=== PATIENT | female | born 1965 | race African-American/Black ===

== ENCOUNTER 2020-06-03 20:13 | Emergency (ER) | payer OTHER ==
[2020-06-03] MEDS ORDERED: SODIUM CHLORIDE 0.9% (FLUSH) 10 ML SYG IV PRN (20:38)
[2020-06-03] MEDS ORDERED: METOPROLOL TARTRATE INJ 5 MG/5 ML VIAL IV ONE ×3 (20:39→23:09)
--- NOTE | 2020-06-03 20:53 | RAD ---
EXAM: Chest,1 View CLINICAL INDICATION: Shortness of breath COMPARISON: There is no previous study for comparison. FINDINGS: A single view of the chest was obtained. The heart size is normal. A tracheostomy is noted. The pulmonary vascularity is unremarkable. The lungs are clear. There is no consolidation, infiltrate, pleural effusion, or pneumothorax. IMPRESSION: No evidence of active pulmonary disease. Electronically signed by: Edgar Reynolds MD 06/03/2020 8:51 PM [facility]
[2020-06-03] MEDS ORDERED: SODIUM CHLORIDE 0.9% 1000ML 1,000 ML IVS ONE (21:36)
[2020-06-04] MEDS ORDERED: SODIUM CHLORIDE 0.9% 1000ML 1,000 ML IVS ONE (00:19)
[2020-06-04] MEDS ORDERED: METOPROLOL TARTRATE INJ 5 MG/5 ML VIAL IV ONE (00:20)
[2020-06-04] MEDS ORDERED: PIPERACILLIN/TAZOBACTAM 4.5 GM in SODIUM CHLORIDE 0.9% 100ML 100 ML IVPB ONE (00:37)
--- NOTE | 2020-06-04 00:44 | ED.PDOC ---
History of Present Illness - General Chief Complaint: Blood Pressure Problem Stated Complaint: high B/P, high HR Time Seen by Provider: 06/03/20 20:38 Source: RN notes reviewed, Vital Signs reviewed, EMS notes reviewed, residential records Exam Limitations: clinical condition - Pt with a trach tube in place. - History of Present Illness Initial Comments: History of present illness and review of systems are limited secondary to patient having a trach tube and unable to effectively communicate with the staff and myself. Patient sent from the residential secondary to elevated blood pressure and heart rate. On arrival here patient's heart rate was in the 160s with a blood pressure of systolic 220 and diastolic 110. Edition patient was diaphoretic and tachypneic. Patient denied any pain. Timing/Duration: unsure Severity: severe Improving Factors: nothing Worsening Factors: nothing Associated Symptoms: diaphoresis Allergies/Adverse Reactions: Allergies NO KNOWN ALLERGY Allergy (Verified 06/03/20 20:54) Home Medications: Ambulatory Orders Acetaminophen [Tylenol] 325 mg PO 06/03/20 Arformoterol Tartrate Nebs [Brovana Nebs] 06/03/20 Aspirin [Aspirin 81 Low Dose] 81 mg PO 06/03/20 Bisacodyl Suppository 10Mg [Dulcolax Suppository 10mg] 06/03/20 Budesonide (Inhalation) [Budesonide] 06/03/20 Chlorhexidine Gluconate (Mouth [Chlorhexidine Gluconate] 0.12 % MT 06/03/20 Docusate Sodium [Pedia-Lax] 50 mg PO 06/03/20 Enoxaparin Sodium [Lovenox] 40 mg SC 06/03/20 Famotidine 10 mg PO 06/03/20 Gabapentin (Bulk) 100 mg Q8HR 06/03/20 Guaifenesin 400 mg PO 06/03/20 Insulin Detemir [Levemir Pen] 06/03/20 Insulin Lispro 06/03/20 Levetiracetam in Sodium Chlori [Levetiracetam/Sodium Chlo 500 mg/100Ml] 1 karey IV 06/03/20 Promethazine HCl 12.5 mg TX 06/03/20 Thiamine HCl [Thiamine Hydrochloride] 100 mg PO 06/03/20 hydrALAZINE HCl [(None)] 10 mg PO 06/03/20 levoFLOXacin [Levaquin] 500 mg PO DAILY 06/03/20 Review of Systems - Review of Systems Unable to Obtain Due To: clinical condition Past Medical History (General) - Patient Medical History Hx Seizures: No Hx Stroke: Yes - TIA Hx Dementia: No Hx Asthma: No Hx of COPD: No Hx Cardiac Disorders: Yes Hx Congestive Heart Failure: No Hx Pacemaker: No Hx Hypertension: Yes Hx Thyroid Disease: No Hx Diabetes: Yes Hx Gastroesophageal Reflux: No Hx Renal Disease: Yes Hx Cancer: No Hx of HIV: No Hx Hepatitis C: No Hx MRSA: No - Vaccination History Hx Tetanus, Diphtheria Vaccination: No Hx Influenza Vaccination: Yes Hx Pneumococcal Vaccination: No - Social History Hx Tobacco Use: No Hx Chewing Tobacco Use: No Hx Alcohol Use: No Hx Substance Use: No Hx Substance Use Treatment: No Hx Depression: No Feels Threatened In Home Enviroment: No Feels Threatened In a Relationship: No Hx Physical Abuse: No Hx Emotional Abuse: No Hx Suspected Abuse: No - Activities of Daily Living Prison/Assisted Living (if applicable):: Yaron Adri[facility] - Female History Patient is a Female of Child Bearing Age (10 -59 yrs old): Yes Patient : No - Triage Comment ED Triage Comment: The patient was moved from EMS cot onto ER Trauma room bed and left with rails up. She was would follow come commands but was not very alert. She was sweating to and warm to the touch on the right side and cool on the left. She was normally on the vent and was moved from the BVM EMS was using onto the vent and settings set by RT. She could not speak so information was obtained from EMS and the paperwork sent from the residential. She was tachacardic at 176. Family Medical History - Family History Mother Family History: Unknown Physical Exam - Physical Exam General Appearance: Anxious, Obvious distress, Ill Appearing, Unkempt, Well Developed, Well Nourished Eye Exam: bilateral normal Ears, Nose, Throat: hearing grossly normal, other - Patient with dry mucous membranes. Neck: non-tender, full range of motion, supple, other - Trach in place Respiratory: chest non-tender, respiratory distress, accessory muscle use, rhonchi Cardiovascular/Chest: normal peripheral pulses, no murmur, tachycardia Peripheral Pulses: radial,right: 2+, radial,left: 2+ Gastrointestinal/Abdominal: normal bowel sounds, non tender, soft Back Exam: no CVA tenderness, no vertebral tenderness Extremity: no pedal edema, no calf tenderness, normal capillary refill Neurologic: alert Skin Exam: normal color, diaphoresis Lymphatic: no adenopathy Progress - Progress Progress: Differential diagnosis: Sepsis, pneumonia, Covid, influenza among others. 06/04/20 02:45 Patient on arrival was significantly tachycardic, diaphoretic and significantly elevated blood pressure. There was some improvement in the heart rate and blood pressure with Lopressor. Overall patient received 4 doses of 5 mg of Lopressor IV. It only helped the heart rate and blood pressure transiently. Patient was noted to be very dehydrated and was given 2 L of IV fluids. Laboratory work shows a significant UTI for which she was treated with Zosyn. Patient was given clonidine which improved the blood pressure and heart rate also. Patient is going to require inpatient admission and care. Patient has been accepted at [facility]. Fransisco Mayes M.D. #[id number] - Results/Orders Results/Orders: EKG performed 03 June 2020 at 2011 hrs.: Sinus tachycardia to 163 bpm, nonspecific ST changes, normal axis deviation, abnormal EKG. No comparison EKG available at this time. EXAM: Chest,1 View CLINICAL INDICATION: Shortness of breath COMPARISON: There is no previous study for comparison. FINDINGS: A single view of the chest was obtained. The heart size is normal. A tracheostomy is noted. The pulmonary vascularity is unremarkable. The lungs are clear. There is no consolidation, infiltrate, pleural effusion, or pneumothorax. IMPRESSION: No evidence of active pulmonary disease. Electronically signed by: Edgar Reynolds MD 06/03/2020 8:51 PM [employer] 06/03/20 20:38 IV Care:Saline Lock per Protoc QSHIFT Telemetry ONCE Sodium Chloride 0.9% (Flush) [Saline Flush Syringe] 3 ml IV PRN PRN 06/03/20 20:39 Pulse Oximetry Assessment DAILY 06/03/20 20:45 EKG STAT 06/03/20 20:50 BLOOD CULTURE Stat 06/03/20 21:22 URINE CULTURE W/COLONY COUNT Stat 06/03/20 22:15 Catheter:[place] QSHIFT 06/04/20 00:19 Sodium Chloride 0.9% 1000ML [Ns 1000 ml] 1,000 ml IVS ONCE RAPID SARS-CoV-2 RNA Stat 06/04/20 00:37 Piperacillin/Tazobactam [Zosyn] 4.5 gm Sodium Chloride 0.9% 100Ml [NS (NACL 0.9%) 100ml] 100 ml IVPB ONCE 06/04/20 09:00 Pulse Ox Daily Laboratory Results - last 24 hr 06/03/20 06/03/20 06/03/20 20:35 21:22 23:30 WBC 19.5 H RBC 4.04 L Hgb 12.1 Hct 37.4 MCV 92.7 MCH 30.0 MCHC 32.3 L RDW 17.3 H Plt Count 489 H MPV 8.7 Absolute Neuts (auto) 11.90 H Absolute Lymphs (auto) 4.30 H Absolute Monos (auto) 2.30 H Absolute Eos (auto) 0.80 H Absolute Basos (auto) 0.30 H Neutrophils % 60.8 Lymphocytes % 21.8 Monocytes % 11.9 H Eosinophils % 4.0 Basophils % 1.5 PT 10.3 INR 1.04 PTT (SP) 24.5 Sodium 140 Potassium 5.5 H Chloride 103 Carbon Dioxide 22 Anion Gap 20.5 H BUN 17 Creatinine 0.69 BUN/Creatinine Ratio 24.6 H Random Glucose 157 H Serum Osmolality 284.2 Lactic Acid 1.8 Calcium 10.2 Magnesium 1.8 Total Bilirubin 1.0 Direct Bilirubin 0.2 Indirect Bilirubin 0.8 AST 40 ALT 33 Alkaline Phosphatase 86 Creatine Kinase 32 CK-MB (CK-2) 1.2 CK-MB (CK-2) % Not Reportable Troponin I < 0.02 B-Natriuretic Peptide 15.9 Serum Total Protein 8.8 H Albumin 3.9 Urine Color Yellow Urine Appearance Cloudy Urine pH 7.0 Ur Specific [place] >= 1.030 Urine Protein >=300 H Urine Glucose (UA) Negative Urine Ketones Negative Urine Blood Large H Urine Nitrite Negative Urine Bilirubin Negative Urine Urobilinogen 0.2 Ur Leukocyte Esterase Moderate H Urine RBC 20-30 H Urine WBC >50 H Ur Epithelial Cells 5-10 Urine Bacteria 2+ H EXAM: CTA Chest COMPARISON: None. INDICATION: tachycardia and tachypnea TECHNIQUE: CT images through the chest with IV contrast. Multiplanar reformats. Automated exposure control was utilized on this examination as a dose lowering technique. CTA FINDINGS: No dissection or aneurysm. No occlusion or significant stenosis. Mild to moderate calcified multivessel atherosclerosis. NONVASCULAR CHEST FINDINGS: Heart and mediastinum: Heart size is enlarged. Mediastinal and hilar lymph nodes are increased in number but not in size and are likely reactive. Thyroid gland: Visualized portions are normal. Lungs: Moderate pulmonary edema and scattered atelectasis are present. Dependent groundglass opacities are noted. Airways: No filling defects. No bronchiectasis. Endotracheal tube in place. Pleura: No pneumothorax. No significant pleural effusion. Subphrenic structures: Within normal limits. Musculoskeletal and soft tissues: Within normal limits for age. IMPRESSION: 1. Dependent groundglass opacities are favored to represent a combination of pulmonary edema and atelectasis, however early infection is not excluded. 2. Cardiomegaly with mild to moderate atherosclerosis. 3. No acute vascular abnormalities. Electronically signed by: Munir Marie MD 06/04/2020 2:19 AM PER[employer] DEVELOPER Vital Signs 06/03/20 06/03/20 06/03/20 20:13 20:35 20:40 Temperature 99.3 F Pulse Rate [ 178 H Pulse OX] Respiratory 32 H Rate Respiratory 51 H 48 H Rate [Volume Control Data] Blood Pressure 206/109 [Right Arm] O2 Sat by Pulse 97 Oximetry 06/03/20 06/03/20 06/03/20 21:28 21:30 22:00 Temperature Pulse Rate [ 127 H 129 H Pulse OX] Respiratory 32 H 32 H Rate Respiratory 37 H Rate [Volume Control Data] Blood Pressure 186/110 222/125 [Right Arm] O2 Sat by Pulse 97 97 Oximetry 06/03/20 06/04/20 06/04/20 23:00 00:00 00:31 Temperature Pulse Rate [ 126 H 126 H 132 H Pulse OX] Respiratory 50 H 50 H 50 H Rate Respiratory Rate [Volume Control Data] Blood Pressure 187/104 189/112 234/134 [Right Arm] O2 Sat by Pulse 93 L 91 L 90 L Oximetry Departure - Departure Clinical Impression: Malignant hypertension, Tachycardia, Dehydration, Tachypnea Time of Disposition: 02:51 Disposition: Transfer to Hospital Condition: Serious Departure Forms: ED Discharge - Pt. Copy, Patient Portal Self Enrollment Instructions: DI for High Blood Pressure Referrals: SONY TEIXEIRA [Primary Care Provider] - 1-2 Weeks Home Medications: Ambulatory Orders Acetaminophen [Tylenol] 325 mg PO 06/03/20 Arformoterol Tartrate Nebs [Brovana Nebs] 06/03/20 Aspirin [Aspirin 81 Low Dose] 81 mg PO 06/03/20 Bisacodyl Suppository 10Mg [Dulcolax Suppository 10mg] 06/03/20 Budesonide (Inhalation) [Budesonide] 06/03/20 Chlorhexidine Gluconate (Mouth [Chlorhexidine Gluconate] 0.12 % MT 06/03/20 Docusate Sodium [Pedia-Lax] 50 mg PO 06/03/20 Enoxaparin Sodium [Lovenox] 40 mg SC 06/03/20 Famotidine 10 mg PO 06/03/20 Gabapentin (Bulk) 100 mg Q8HR 06/03/20 Guaifenesin 400 mg PO 06/03/20 Insulin Detemir [Levemir Pen] 06/03/20 Insulin Lispro 06/03/20 Levetiracetam in Sodium Chlori [Levetiracetam/Sodium Chlo 500 mg/100Ml] 1 karey IV 06/03/20 Promethazine HCl 12.5 mg TX 06/03/20 Thiamine HCl [Thiamine Hydrochloride] 100 mg PO 06/03/20 hydrALAZINE HCl [(None)] 10 mg PO 06/03/20 levoFLOXacin [Levaquin] 500 mg PO DAILY 06/03/20 Critical Care Note - Critical Care Note Total Time (mins): 60 Transfer to Outside Facility - Transfer Information Decision to Transfer Date: 06/04/20 Decision to Transfer Time: 01:00 Reason for Transfer: required specialist not available Accepting Facility: [facility]
[2020-06-04] MEDS ORDERED: cloNIDine HCL 0.1 MG TAB PO ONE (01:41)
--- NOTE | 2020-06-04 02:21 | CT ---
EXAM: CTA Chest COMPARISON: None. INDICATION: tachycardia and tachypnea TECHNIQUE: CT images through the chest with IV contrast. Multiplanar reformats. Automated exposure control was utilized on this examination as a dose lowering technique. CTA FINDINGS: No dissection or aneurysm. No occlusion or significant stenosis. Mild to moderate calcified multivessel atherosclerosis. NONVASCULAR CHEST FINDINGS: Heart and mediastinum: Heart size is enlarged. Mediastinal and hilar lymph nodes are increased in number but not in size and are likely reactive. Thyroid gland: Visualized portions are normal. Lungs: Moderate pulmonary edema and scattered atelectasis are present. Dependent groundglass opacities are noted. Airways: No filling defects. No bronchiectasis. Endotracheal tube in place. Pleura: No pneumothorax. No significant pleural effusion. Subphrenic structures: Within normal limits. Musculoskeletal and soft tissues: Within normal limits for age. IMPRESSION: 1. Dependent groundglass opacities are favored to represent a combination of pulmonary edema and atelectasis, however early infection is not excluded. 2. Cardiomegaly with mild to moderate atherosclerosis. 3. No acute vascular abnormalities. Electronically signed by: Munir Marie MD 06/04/2020 2:19 AM [facility]
[2020-06-04 02:59] VITALS: BP 197/103; TEMP 99.1; O2SAT 99
== END 2020-06-04 02:56 | disposition short-term general hospital (02) ==
LOC: ER 20:13
DX: I12.9 Hypertensive chronic kidney disease with stage 1 through stage 4 chronic kidney disease, or unspecified chronic kidney disease (principal); E86.0 Dehydration; R00.0 Tachycardia, unspecified; R06.82 Tachypnea, not elsewhere classified; N39.0 Urinary tract infection, site not specified; N18.9 Chronic kidney disease, unspecified; E11.22 Type 2 diabetes mellitus with diabetic chronic kidney disease; I51.9 Heart disease, unspecified; Z20.822 Contact with and (suspected) exposure to COVID-19; Z86.73 Personal history of transient ischemic attack (TIA), and cerebral infarction without residual deficits; Z99.11 Dependence on respirator [ventilator] status; Z79.899 Other long term (current) drug therapy; Z79.4 Long term (current) use of insulin; Z79.82 Long term (current) use of aspirin
CPT/HCPCS: 71045; 71275; 80048; 80076; 81001; 82550; 82553; 83605; 83880; 84484; 85025; 85610; 85730; 87040; 87086; 87635; 93005; 94002; J2543; J7030; J7050

== ENCOUNTER 2020-06-22 03:34 | Emergency (ER) | payer OTHER ==
[2020-06-22] MEDS ORDERED: LABETALOL INJ 5 MG/ML VIAL IV ONE (03:40)
--- NOTE | 2020-06-22 03:43 | ED.PDOC ---
History of Present Illness - General Time Seen by Provider: 06/22/20 03:39 Source: RN notes reviewed, Vital Signs reviewed, EMS notes reviewed, EMS, senior care records Additional Information: This is a 54-year-old female, with history of acute respiratory failure hype rtension metabolic syndrome TIA diabetes kidney failure hypokalemia patient presents to the ER because of elevated blood pressure, patient comes from [facility], she recently was discharged from [place], according to EMS patient is on her usual medical baseline, she actually looks a lot more awake than usual, and her blood pressure at that senior care was elevated with tachycardia. BP was normal with EMS, it was elevated here, but patient appears to be fighting the tracheostomy - History of Present Illness Timing/Duration: intermittent Improving Factors: nothing Worsening Factors: nothing Allergies/Adverse Reactions: Allergies NO KNOWN ALLERGY Allergy (Verified 06/03/20 20:54) Home Medications: Ambulatory Orders Acetaminophen [Tylenol] 325 mg PO 06/03/20 Arformoterol Tartrate Nebs [Brovana Nebs] 06/03/20 Aspirin [Aspirin 81 Low Dose] 81 mg PO 06/03/20 Bisacodyl Suppository 10Mg [Dulcolax Suppository 10mg] 06/03/20 Budesonide (Inhalation) [Budesonide] 06/03/20 Chlorhexidine Gluconate (Mouth [Chlorhexidine Gluconate] 0.12 % MT 06/03/20 Docusate Sodium [Pedia-Lax] 50 mg PO 06/03/20 Enoxaparin Sodium [Lovenox] 40 mg SC 06/03/20 Famotidine 10 mg PO 06/03/20 Gabapentin (Bulk) 100 mg Q8HR 06/03/20 Guaifenesin 400 mg PO 06/03/20 Insulin Detemir [Levemir Pen] 06/03/20 Insulin Lispro 06/03/20 Levetiracetam in Sodium Chlori [Levetiracetam/Sodium Chlo 500 mg/100Ml] 1 karey IV 06/03/20 Promethazine HCl 12.5 mg ME 06/03/20 Thiamine HCl [Thiamine Hydrochloride] 100 mg PO 06/03/20 hydrALAZINE HCl [(None)] 10 mg PO 06/03/20 levoFLOXacin [Levaquin] 500 mg PO DAILY 06/03/20 Amoxicillin 875 mg PO BID 5 Days #10 tab 06/22/20 Azithromycin [Zithromax] 250 mg PO DAILY 4 Days #4 tab 06/22/20 Review of Systems - Review of Systems Unable to Obtain Due To: condition, intubated Past Medical History (General) - Patient Medical History Hx Seizures: No Hx Stroke: Yes - TIA Hx Dementia: No Hx Asthma: No Hx of COPD: No Hx Cardiac Disorders: Yes Hx Congestive Heart Failure: No Hx Pacemaker: No Hx Hypertension: Yes Hx Thyroid Disease: No Hx Diabetes: Yes Hx Gastroesophageal Reflux: No Hx Renal Disease: Yes Hx Cancer: No Hx of HIV: No Hx Hepatitis C: No Hx MRSA: No - Vaccination History Hx Tetanus, Diphtheria Vaccination: No Hx Influenza Vaccination: Yes Hx Pneumococcal Vaccination: No - Social History Hx Tobacco Use: No Hx Chewing Tobacco Use: No Hx Alcohol Use: No Hx Substance Use: No Hx Substance Use Treatment: No Hx Depression: No Hx Physical Abuse: No Hx Emotional Abuse: No Hx Suspected Abuse: No - Female History Patient : No Family Medical History - Family History Mother Family History: Unknown Physical Exam - Physical Exam General Appearance: Agitated Eye Exam: bilateral normal Ears, Nose, Throat: hearing grossly normal Neck: non-tender, full range of motion, supple Respiratory: chest non-tender, lungs clear, normal breath sounds, no respiratory distress, no accessory muscle use Cardiovascular/Chest: normal peripheral pulses, regular rate, rhythm, no edema, no gallop, no JVD, no murmur Peripheral Pulses: radial,right: 2+, radial,left: 2+ Gastrointestinal/Abdominal: normal bowel sounds, non tender, soft, no organomegaly Extremity: normal range of motion, non-tender, normal inspection, no pedal edema, no calf tenderness Neurologic: other - usual neurological baseline Skin Exam: normal color Lymphatic: no adenopathy Progress - Progress Progress: 54-year-old female, with a tracheostomy with respiratory failure that presents from senior care, allegedly patient blood pressure was elevated at the senior care facility, when patient arrived in our facility, patient was tachycardic in the 120s, blood pressure was elevated I ordered labetalol in the ER to help with the tachycardia and also decrease the blood pressure or improve the blood pressure. The blood pressure normalized and heart rate started coming down, we noticed that patient appears to be uncomfortable she is nonverbal and she has tracheostomy so can be suctioned the tracheostomy removing a lot of white look like a mucous plug, and patient vital signs started to normalize, and patient appears more calm and awake and did not appear to have any respiratory distress. Patient chest x-ray did not show any evidence of pneumonia patient does not have any evidence of UTI with negative nitrates, I did order lactic acid up blood culture, lactic acid was elevated at 2.7 so we decided without any obvious source of infection we will give her fluids we will order IV Rocephin and Zithromax, will discharge patient back to senior care with p.o. Zithromax for 4 days and high-dose amoxicillin for 4 days twice a day, pending blood cultures, be less distressed, she is calm heart rate is coming down, and blood pressure is better without any medication Reason why I decided to give this patient is to antibiotics is because of obviously the concern for possible pneumonia even though the x-ray was read as atelectasis this patient had a portable x-ray and there might be a possibility for pneumonia we have not been seen on x-ray 06/22/20 04:22 Departure - Departure Clinical Impression: Mucus plugging of bronchi Hypertension Qualifiers: Hypertension type: unspecified Qualified Code(s): I10 - Essential (primary) hypertension Disposition: Discharge to SNF Condition: Fair Diet: regular diet Referrals: SONY TEIXEIRA [Primary Care Provider] - 1-2 Weeks Prescriptions: Amoxicillin 875 mg PO BID 5 Days #10 tab Azithromycin [Zithromax] 250 mg PO DAILY 4 Days #4 tab Home Medications: Ambulatory Orders Acetaminophen [Tylenol] 325 mg PO 06/03/20 Arformoterol Tartrate Nebs [Brovana Nebs] 06/03/20 Aspirin [Aspirin 81 Low Dose] 81 mg PO 06/03/20 Bisacodyl Suppository 10Mg [Dulcolax Suppository 10mg] 06/03/20 Budesonide (Inhalation) [Budesonide] 06/03/20 Chlorhexidine Gluconate (Mouth [Chlorhexidine Gluconate] 0.12 % MT 06/03/20 Docusate Sodium [Pedia-Lax] 50 mg PO 06/03/20 Enoxaparin Sodium [Lovenox] 40 mg SC 06/03/20 Famotidine 10 mg PO 06/03/20 Gabapentin (Bulk) 100 mg Q8HR 06/03/20 Guaifenesin 400 mg PO 06/03/20 Insulin Detemir [Levemir Pen] 06/03/20 Insulin Lispro 06/03/20 Levetiracetam in Sodium Chlori [Levetiracetam/Sodium Chlo 500 mg/100Ml] 1 karey IV 06/03/20 Promethazine HCl 12.5 mg ME 06/03/20 Thiamine HCl [Thiamine Hydrochloride] 100 mg PO 06/03/20 hydrALAZINE HCl [(None)] 10 mg PO 06/03/20 levoFLOXacin [Levaquin] 500 mg PO DAILY 06/03/20 Amoxicillin 875 mg PO BID 5 Days #10 tab 06/22/20 Azithromycin [Zithromax] 250 mg PO DAILY 4 Days #4 tab 06/22/20
--- NOTE | 2020-06-22 04:15 | RAD ---
EXAM: XR Chest, 1 View CLINICAL HISTORY: The patient is 54 years old and is Female; hbp TECHNIQUE: Single view of the chest. COMPARISON: June 03, 2020. FINDINGS: Lungs: Bilateral dependent atelectasis is decreased in conspicuity. Linear atelectasis in the bilateral lower lobes has developed. No pulmonary vascular congestion. Pleural space: Unremarkable. No pneumothorax. Heart: Cardiomediastinal silhouette is not significantly changed given the differences in technique. Mediastinum: See above. Bones/joints: The bones and joints are unchanged as visualized. Tubes, lines and devices: Tracheostomy tube again noted. Upper abdomen: No free air in the visualized upper abdomen. IMPRESSION: Bilateral dependent atelectasis is decreased in conspicuity. Linear atelectasis in the bilateral lower lobes has developed. Electronically signed by: Kareen Oviedo MD 06/22/2020 4:13 AM [facility]
[2020-06-22] MEDS ORDERED: SODIUM CHLORIDE 0.9% 1000ML 1,000 ML IVS ONE (04:16)
[2020-06-22] MEDS ORDERED: cefTRIAXone SODIUM 1 GM in SODIUM CHL 0.9% 50ML MIN-BAG+ 50 ML IVPB ONE (04:22)
[2020-06-22] MEDS ORDERED: AZITHROMYCIN IV 500 MG in SODIUM CHLORIDE 0.9% 250ML 250 ML IVPB ONE (04:22)
[2020-06-22 04:48] VITALS: O2SAT 98
[2020-06-22] MEDS ORDERED: FLUCONAZOLE 150 MG TAB PO ONE (04:54)
[2020-06-22] MEDS ORDERED: FLUCONAZOLE 100 MG TAB ONE (05:03)
[2020-06-22 06:11] VITALS: BP 148/78; TEMP 97.6
== END 2020-06-22 06:11 ==
LOC: ER 03:34
DX: I12.9 Hypertensive chronic kidney disease with stage 1 through stage 4 chronic kidney disease, or unspecified chronic kidney disease (principal); T17.590A Other foreign object in bronchus causing asphyxiation, initial encounter; N18.9 Chronic kidney disease, unspecified; E11.22 Type 2 diabetes mellitus with diabetic chronic kidney disease; I51.9 Heart disease, unspecified; Z86.73 Personal history of transient ischemic attack (TIA), and cerebral infarction without residual deficits; Z79.4 Long term (current) use of insulin; Z79.899 Other long term (current) drug therapy; Z79.82 Long term (current) use of aspirin; Z93.0 Tracheostomy status
CPT/HCPCS: 36415; 71045; 80053; 81001; 83605; 84443; 84484; 85025; 87040; 87086; 87088; 87186; 93005; 94002; J0456; J0696; J7030; J7050